=== PATIENT | female | born 1930 | race Caucasian/White ===

== ENCOUNTER 2018-05-22 00:16 | Emergency (ER) | payer MEDICARE ==
[~2018-05-22] VITALS: Ht 162.6 cm; Wt 81.8 kg
[~2018-05-22 00:16] MED LIST: ANTIDEPRESSANT MED PO; CARBIDOPA PO; IRON PO; LASIX PO; LEVODOPA PO; LISINOPRIL PO; SYNTHROID PO; ULTRAM50 MG PO; [UNRECOGNIZED DRUG - OTHER] PO
[2018-05-22 00:19] VITALS: Ht 162.6 cm; Wt 81.8 kg
[2018-05-22] MEDS ORDERED: CITALOPRAM10 MG/5 ML (00:29)
[2018-05-22] MEDS ORDERED: CLARITIN5 MG/5 ML (00:30)
[2018-05-22] MEDS ORDERED: OLUX-E 0.05% FO50 GM (00:30)
[2018-05-22] MEDS ORDERED: FERROUS SULFAT140 MG (00:32)
[2018-05-22] MEDS ORDERED: FUROSEMIDE10 MG/M1 (00:32)
[2018-05-22] MEDS ORDERED: MELATONIN 3 MG1 TAB PO (00:33)
[2018-05-22] MEDS ORDERED: LISINOPRIL5 MG PO (00:33)
[2018-05-22] MEDS ORDERED: PRILOSEC2.5 MG (00:34)
[2018-05-22] MEDS ORDERED: MIRALAX17 GM (00:34)
[2018-05-22] MEDS ORDERED: FLINTSTONE1 TAB.CHEW PO (00:34)
[2018-05-22] MEDS ORDERED: CEFTRIAXONE1 G/VIAL IM (00:34)
[2018-05-22] MEDS ORDERED: SPIRIVA18 MCG INH (00:35)
[2018-05-22] MEDS ORDERED: SYNTHROID75 MCG PO (00:35)
[2018-05-22] MEDS ORDERED: TRIHEXYPHEN2 MG/5 ML (00:36)
[2018-05-22] MEDS ORDERED: XARELTO20 MG PO (00:40)
[2018-05-22] MEDS ORDERED: MUCINEX600 MG PO (00:41)
[2018-05-22] MEDS ORDERED: LASIX40 MG PO (00:41)
[2018-05-22] MEDS ORDERED: SINEMET CR 50-1 EACH (00:42)
[2018-05-22] MEDS ORDERED: MUCINEX600 MG (00:42)
[2018-05-22] MEDS ORDERED: CLEOCIN HCL300 MG (00:44)
[2018-05-22] MEDS ORDERED: CATAPRES0.1 MG (00:45)
[2018-05-22] MEDS ORDERED: COLACE100 MG (00:45)
[2018-05-22] MEDS ORDERED: HYDROXYZINE HCL10 MG (00:45)
[2018-05-22] MEDS ORDERED: IPRAT-ALBUT 0.5-3 ML (00:45)
[2018-05-22 00:54] LABS: BASOPHILS 0.3 % (0-2); EOSINOPHILS 6.7 % (0-7); HEMATOCRIT 33.2 % (36.0-48.0); HEMOGLOBIN 11.1 g/dL (12-16); IMMATURE GRANULOCYTES 1.1 % (0-5); LYMPHOCYTES 16.7 % (15-50); MCH 30.5 pg (26.0-34.0); MCHC 33.4 g/dL (31.0-37.0); MCV 91.2 fL (80.0-100.0); MONOCYTES 12.3 % (2-11); NEUTROPHILS 62.9 % (40-80); PLATELET COUNT 184 10x3/uL (130-400); RBC 3.64 10x6/uL (4.00-5.40); RDW 12.4 % (11.5-14.5)
[2018-05-22 01:09] LABS: ALBUMIN 2.8 g/dL (3.4-5.0); ANION GAP 9.5 mmol/L (8-16); BILIRUBIN - TOTAL 0.37 mg/dL (0.2-1.3); CALCIUM 8.2 mg/dL (8.5-10.1); CREATININE - SERUM 1.5 mg/dL (0.6-1.3); POTASSIUM - SERUM 5.5 mmol/L (3.5-5.1); PROTEIN - SERUM 6.3 g/dL (6.4-8.2)
[2018-05-22 04:52] VITALS: BP 124/52
== END 2018-05-22 04:53 | disposition other institution (70) ==
LOC: D.ER 00:16
PROVIDERS: Family Medicine
DX: L03.114 Cellulitis of left upper limb (principal); I89.0 Lymphedema, not elsewhere classified; G20 Parkinson's disease; I10 Essential (primary) hypertension; R60.0 Localized edema

== ENCOUNTER 2018-10-03 15:05 | Inpatient (IN) | payer MEDICARE, MEDICAID ==
[~2018-10-03] VITALS: Ht 162.6 cm; Wt 75.9 kg
[~2018-10-03 15:05] MED LIST changes: +CATAPRES0.1 MG; +CEFTRIAXONE1 G/VIAL IM; +CITALOPRAM10 MG/5 ML; +CLARITIN5 MG/5 ML; +CLEOCIN HCL300 MG; +COLACE100 MG; +FERROUS SULFAT140 MG; +FLINTSTONE1 TAB.CHEW PO; +FUROSEMIDE10 MG/M1; +HYDROXYZINE HCL10 MG; +IPRAT-ALBUT 0.5-3 ML; +LASIX40 MG PO; +LISINOPRIL5 MG PO; +MELATONIN 3 MG1 TAB PO; +MIRALAX17 GM; +MUCINEX600 MG; +MUCINEX600 MG PO; +OLUX-E 0.05% FO50 GM; +PRILOSEC2.5 MG; +SINEMET CR 50-1 EACH; +SPIRIVA18 MCG INH; +SYNTHROID75 MCG PO; +TRIHEXYPHEN2 MG/5 ML; +XARELTO20 MG PO
[2018-10-03] MEDS ORDERED: ANORO ELLIPTA1 EACH INH (15:35)
[2018-10-03 15:36] LABS: BASOPHILS 0.3 % (0-2); EOSINOPHILS 1.2 % (0-7); HEMATOCRIT 34.7 % (36.0-48.0); HEMOGLOBIN 11.2 g/dL (12-16); IMMATURE GRANULOCYTES 1.8 % (0-5); LYMPHOCYTES 7.7 % (15-50); MCH 30.4 pg (26.0-34.0); MCHC 32.3 g/dL (31.0-37.0); MCV 94.3 fL (80.0-100.0); MEAN PLATELET VOLUME 9.1 fL (7.4-10.4); PLATELET COUNT 256 10x3/uL (130-400); RBC 3.68 10x6/uL (4.00-5.40); RDW 13.5 % (11.5-14.5)
[2018-10-03] MEDS ORDERED: ARTIFICIAL TEAR15 ML EACH EYE (15:36)
[2018-10-03] MEDS ORDERED: ATIVAN0.5 MG PO (15:39)
[2018-10-03] MEDS ORDERED: BACTRIM DS1 TAB PO (15:39)
[2018-10-03] MEDS ORDERED: CELEXA10 MG PO (15:40)
[2018-10-03] MEDS ORDERED: CLARITIN 10 MG10 MG PO (15:40)
[2018-10-03] MEDS ORDERED: OS-CAL500 MG PO (15:40)
[2018-10-03] MEDS ORDERED: COLACE100 MG PO (15:41)
[2018-10-03] MEDS ORDERED: FERROUS SULFAT325 MG PO (15:41)
[2018-10-03] MEDS ORDERED: CLOBETASOL PROP15 GM TP (15:41)
[2018-10-03] MEDS ORDERED: CATAPRES0.1 MG PO (15:41)
[2018-10-03] MEDS ORDERED: FLORANEX / LACT1 TAB PO (15:41)
[2018-10-03 15:42] LABS: ALBUMIN 2.9 g/dL (3.4-5.0); ANION GAP 8.7 mmol/L (8-16); BILIRUBIN - TOTAL 0.46 mg/dL (0.2-1.3); CALCIUM 9.2 mg/dL (8.5-10.1); CREATININE - SERUM 1.7 mg/dL (0.6-1.3); POTASSIUM - SERUM 4.7 mmol/L (3.5-5.1); PROTEIN - SERUM 7.3 g/dL (6.4-8.2)
[2018-10-03] MEDS ORDERED: ANUSOL-HC 2.5%30 GM TOPICAL (15:43)
[2018-10-03] MEDS ORDERED: HYDROXYZINE HCL10 MG PO (15:43)
[2018-10-03] MEDS ORDERED: GERI TUSSIN DM (15:43)
[2018-10-03] MEDS ORDERED: MELATONIN 3 MG1 TAB PO (15:44)
[2018-10-03] MEDS ORDERED: FUROSEMIDE20 MG PO (15:44)
[2018-10-03] MEDS ORDERED: IPRAT-ALBUT 0.5-3 ML UPD (15:44)
[2018-10-03] MEDS ORDERED: OMEPRAZOLE20 M1 PO (15:45)
[2018-10-03] MEDS ORDERED: MULTI-DAY VITAM1 TAB PO (15:45)
[2018-10-03] MEDS ORDERED: MIRALAX17 GM PO (15:45)
[2018-10-03] MEDS ORDERED: KLOR-CON M2020 MEQ PO (15:45)
[2018-10-03] MEDS ORDERED: FLUNISOLIDE29 MCG NASAL (15:46)
[2018-10-03] MEDS ORDERED: THERMOTABS 1 GM1 GM PO (15:46)
[2018-10-03] MEDS ORDERED: SINEMET CR 50-1 EACH PO (15:46)
[2018-10-03] MEDS ORDERED: PROMETHAZINE W473 ML PO (15:46)
[2018-10-03] MEDS ORDERED: TESSALON PERLE100 MG PO (15:47)
[2018-10-03] MEDS ORDERED: SYNTHROID88 MCG PO (15:47)
[2018-10-03] MEDS ORDERED: ARTANE2 MG PO (15:48)
[2018-10-03] MEDS ORDERED: ACETAMINOPHEN500 M1 PO (15:48)
[2018-10-03] MEDS ORDERED: VITAMIN B-12100 MCG PO (15:49)
[2018-10-03] MEDS ORDERED: XARELTO20 MG PO (15:49)
[2018-10-03] MEDS ORDERED: ULTRAM50 MG PO (15:49)
[2018-10-03] MEDS ORDERED: VITAMIN D5000 UNIT PO (15:49)
--- NOTE | 2018-10-03 16:45 | NUR ---
PROVIDED PT WITH ICE WATER AT THIS TIME.
[2018-10-03 16:51] VITALS: BP 180/77
[2018-10-03 16:52] LABS: APPEARANCE CLEAR (CLEAR); BILIRUBIN NEGATIVE (NEGATIVE); COLOR STRAW (YELLOW); GLUCOSE NEGATIVE (NEGATIVE); KETONE NEGATIVE (NEGATIVE); NITRITE POSITIVE (NEGATIVE); PROTEIN TRACE mg/dL (NEGATIVE); SPECIFIC GRAVITY 1.005 (1.005-1.020); UROBILINOGEN NORMAL (NORMAL)
[2018-10-03 16:54] LABS: BACTERIA MODERATE /hpf (NONE SEEN); EPITHELIAL CELLS 0-5 /hpf (0-5); RED CELLS - URINE 0-5 /hpf (0-5)
[2018-10-03 17:11] VITALS: BP 153/72
[2018-10-03 17:17] LABS: THYROID STIMULATING HORMONE 1.91 uIU/mL (0.36-3.74); TROPONIN-I < 0.017 ng/mL (0.000-0.060)
[2018-10-03 17:31] VITALS: BP 127/86
--- NOTE | 2018-10-03 19:21 | NUR ---
PT WAITING ON ROOM 2208 TO CLEAN BEFOR TRANSPORTING PATIENT TO ROOM 2208.
--- NOTE | 2018-10-03 19:55 | NUR ---
PT RESTING ON BED. PT FAMILY AT BEDSIDE. NO S/S OF ACUTE DISTRESS NOTED.
--- NOTE | 2018-10-03 20:06 | NUR ---
PT LEFT ED VIA STRETCHER FOR INPATIENT ROOM.
[2018-10-03 21:02] VITALS: BP 128/71
[2018-10-04 00:36] VITALS: BP 128/71; BMI 28.7
[2018-10-04 00:43] VITALS: BP 133/62
--- NOTE | 2018-10-04 04:09 | NUR ---
RESTING WIT O2 IN PLACE FAMILY AT BEDSIDE.
[2018-10-04 05:00] VITALS: BP 130/62
[2018-10-04 05:41] LABS: BASOPHILS 0.1 % (0-2); EOSINOPHILS 0 % (0-7); HEMATOCRIT 34.3 % (36.0-48.0); LYMPHOCYTES 6.1 % (15-50); MCH 30.1 pg (26.0-34.0); MCHC 32.1 g/dL (31.0-37.0); MCV 93.7 fL (80.0-100.0); MEAN PLATELET VOLUME 9.2 fL (7.4-10.4); MONOCYTES 4.1 % (2-11); NEUTROPHILS 87.7 % (40-80); PLATELET COUNT 266 10x3/uL (130-400); RBC 3.66 10x6/uL (4.00-5.40); RDW 13.3 % (11.5-14.5); WBC 10.3 10x3/uL (4.8-10.8)
[2018-10-04 05:51] LABS: ANION GAP 11.2 mmol/L (8-16); CALCIUM 9.4 mg/dL (8.5-10.1); CREATININE - SERUM 1.7 mg/dL (0.6-1.3); POTASSIUM - SERUM 4.2 mmol/L (3.5-5.1)
[2018-10-04 08:09] VITALS: BP 118/66
--- NOTE | 2018-10-04 11:22 | NUR ---
PT COMPLAINS OF CRAMPING BEHIND BOTH LEGS, PT PAIN MEDICINE DUE IN 1 HOUR, NO MAG RESULTS ON PT, ORDERED DRAW FOR PT. HAS SITTER AT BEDSIDE, CONTINUE WITH PLAN OF CARE
[2018-10-04 12:09] VITALS: BP 106/53
[2018-10-04 12:13] VITALS: Ht 162.6 cm; Wt 75.9 kg
--- NOTE | 2018-10-04 12:14 | NUR ---
RESTING QUIETLY IN BED. DENIES NEEDS. GUPTA PATENT WITH CLEAR YELLOW URINE.
--- NOTE | 2018-10-04 12:33 | NUR ---
PT REQUESTED PAIN MEDICATIONS DUE TO LEG PAIN ADMINISTERED PRN PAIN MEDS AT 1200, SITTER AT BEDSIDE, NO OTHER NEEDS VOICED, CONTINUE WITH PLAN OF CARE
[2018-10-04 20:00] VITALS: BP 118/58
[2018-10-05 06:36] VITALS: BP 108/58
[2018-10-05 07:42] LABS: BASOPHILS 0.4 % (0-2); EOSINOPHILS 1.8 % (0-7); HEMATOCRIT 34.3 % (36.0-48.0); HEMOGLOBIN 10.8 g/dL (12-16); IMMATURE GRANULOCYTES 4.6 % (0-5); LYMPHOCYTES 12.9 % (15-50); MCH 30.2 pg (26.0-34.0); MCHC 31.5 g/dL (31.0-37.0); MEAN PLATELET VOLUME 9.3 fL (7.4-10.4); MONOCYTES 10.5 % (2-11); NEUTROPHILS 69.8 % (40-80); PLATELET COUNT 271 10x3/uL (130-400); RBC 3.58 10x6/uL (4.00-5.40); RDW 13.6 % (11.5-14.5); WBC 10.9 10x3/uL (4.8-10.8)
[2018-10-05 07:51] LABS: MCV 95.8 fL (80.0-100.0)
[2018-10-05 08:02] LABS: CALCIUM 9.2 mg/dL (8.5-10.1); CARBON DIOXIDE 35.3 mmol/L (21.0-32.0); CREATININE - SERUM 2.4 mg/dL (0.6-1.3); POTASSIUM - SERUM 4.3 mmol/L (3.5-5.1)
[2018-10-05 08:24] VITALS: BP 99/45
[2018-10-05 12:49] VITALS: BP 150/114
[2018-10-05 16:08] VITALS: BP 115/50
--- NOTE | 2018-10-05 16:25 | MORECARE ---
CASE MANAGEMENT DISCHARGE SUMMARY PATIENT: SANDRA HERNANDEZ UNIT: [id number] ADM DATE: 10/03/18 AGE: 88 : 32 SEX: F ROOM/BED: D.2208 AUTHOR: ZEB POWELL PHYSICIAN: REFERRING PHYSICIAN: DEBI ALCARAZ MD DATE OF SERVICE: 10/05/18 Discharge Plan Patient Name: SANDRA HERNANDEZ Facility: [facility]:[place] : 1930 Planned Disposition: Nursing Facility [facility] Cert Anticipated Discharge Date: Discharge Date: Expected LOS: Initial Reviewer: [email or web address] Initial Review Date: 10/03/2018 Generated: 10/05/18 5:25 pm Comments DCP- Discharge Planning Updated by [email or web address]: Caitlyn Escobar on 10/05/18 3:[address] Patient Name: SANDRA HERNANDEZ Admission Status: ER Accout number: [id number] Admission Date: 10-03-2018 : 1930 Admission Diagnosis: Attending: DEBI ALCARAZ Current LOS: 2 Anticipated DC Date: Planned Disposition: Nursing Facility [facility] Cert Primary Insurance: MEDICARE A & B Discharge Planning Comments: CM met with patient to assess discharge planning needs. Patient stated that she lives at [facility] where she is a penitentiary resident. She would like to have rehab before she returns. She states that she is too weak to ambulate so she uses a wheelchair. She has home O2 and wheelchair, and nebulizer. Cm will continue to follow and assist with DC planning as needed. Neonatal Nurse: Caitlyn Escobar DCPIA - Discharge Planning Initial Assessment Updated by [email or web address]: Caitlyn Escobar on 10/05/18 4:20 pm * Is the patient Alert and Oriented? Yes * How many steps to enter\exit or inside your home? * PCP [facility] * Preadmission Environment [facility] * Facility Name [facility] * ADLs Partial Dependent * Partial ADLs (Assistance needed) Ambulation Bathing Medication Management Toileting Transfers * Equipment Nebulizer Oxygen Wheelchair * List name and contact numbers for known caregivers / representatives who currently or will assist patient after discharge: MOHINICARMEN DIAZ [phone] * Verbal permission to speak to the caregivers and representatives has been obtained from the patient. Yes * Community resources currently utilized None * Additional services required to return to the preadmission environment? No * Can the patient safely return to the preadmission environment? Yes * Has this patient been hospitalized within the prior 30 days at any hospital? No Patient Name: SANDRA HERNANDEZ Page [phone] at 1625 All edits/amendments must be made on the electronic document DICTATION DATE: 10/05/182 FRUIT PITTER: TAY 10/05/18 1625 RPT#: [id number] DC DATE: STATUS: ADM IN [facility] [address] [place] [address] END OF REPORT
[2018-10-05 20:00] VITALS: BP 93/47
--- NOTE | 2018-10-05 21:30 | NUR ---
PT SITTING UP IN BED, NO SIGNS OF DISTRESS. PT DOES HAVE CONTINUOUS TREMOR. PRODUCTIVE COUGH. O2 8L HFNC. IV LEFT AC SL. SCDS IN PLACE. GUPTA DRAINING CLEAR YELLOW URINE. ALERT AND ORIENTED. BED ALARM ON. PT STATES SHE NEEDS SOMETHING TO HELP HER RELAX. REFUSED ATIVAN STATING IT "MAKES ME CRAZY" PT REQUESTED DILAUDID. GAVE ORDERED. NO OTHER NEEDS OR COMPLAINTS AT THIS TIME. CL IN REACH ,WILL CONT TO MONITOR
[2018-10-06 05:09] LABS: BASOPHILS 0.2 % (0-2); EOSINOPHILS 0.1 % (0-7); HEMATOCRIT 35.5 % (36.0-48.0); HEMOGLOBIN 11.2 g/dL (12-16); IMMATURE GRANULOCYTES 2.9 % (0-5); LYMPHOCYTES 4.2 % (15-50); MCH 29.8 pg (26.0-34.0); MCHC 31.5 g/dL (31.0-37.0); MCV 94.4 fL (80.0-100.0); MEAN PLATELET VOLUME 9.2 fL (7.4-10.4); NEUTROPHILS 91.6 % (40-80); PLATELET COUNT 262 10x3/uL (130-400); RBC 3.76 10x6/uL (4.00-5.40); RDW 13.7 % (11.5-14.5)
[2018-10-06 05:12] LABS: WBC 14.8 10x3/uL (4.8-10.8)
[2018-10-06 05:24] LABS: CALCIUM 8.9 mg/dL (8.5-10.1); CARBON DIOXIDE 33.7 mmol/L (21.0-32.0); CREATININE - SERUM 2.5 mg/dL (0.6-1.3); MAGNESIUM - SERUM 2.2 mg/dL (1.8-2.4); PHOSPHOROUS 4.4 mg/dL (2.5-4.9); POTASSIUM - SERUM 4.7 mmol/L (3.5-5.1)
[2018-10-06 06:14] VITALS: BP 112/68
[2018-10-06 08:12] VITALS: BP 101/57
--- NOTE | 2018-10-06 09:00 | NUR ---
TEAM LEADER/RESEARCH PSYCHOLOGIST COMPLETE. NO SIGNS OF DISTRESS NOTED. DENIES NEEDS AT THIS TIME.
--- NOTE | 2018-10-06 10:49 | NUR ---
NUTRITION F/U PT OUT OF ISOLATION. RENAL ADA DIET WITH NO INTAKE BREAKFAST. WILL CONTINUE TO PROVIDE DIET, MONITOR PO INTAKE. RD FOLLOWING
--- NOTE | 2018-10-06 12:01 | NUR ---
PT IV LOCK BECAME UNDONE AND BLOOD FLOWED THROUGH IV ONTO BED, ASSSITED GETTING PT CLEANED UP, CONTINUE WITH PLAN OF CARE
[2018-10-06 12:58] VITALS: BP 133/117
[2018-10-06 16:08] VITALS: BP 129/58
--- NOTE | 2018-10-06 16:39 | EC ---
PATIENT:SANDRA HERNANDEZ DATE OF SERVICE: 10/03/18 SEX: F MEDICAL RECORD: [id number] DATE OF : [birth year] LOCATION:[facility] [place] AGE OF PATIENT: 88 ADMISSION DATE: 10/03/18 REFERRING PHYSICIAN: INTERPRETING PHYSICIAN: JOCELYN BEACH MD ECHOCARDIOGRAM REPORT ECHO CHARGES 4 ECHO COMPLETE Date: 10/05/18 CLINICAL DIAGNOSIS: CHF ECHOCARDIOGRAPHIC MEASUREMENTS (adult normal given) AC root (d.<3.7cm) 2.7 cm LV Septum d (<1.2 cm> 1.4 cm Valve Excursion 1.2 cm LV Septum (systole) 1.8 cm Left Atria (s.<4.0cm> 4.0 cm LVPW d(<1.2cm) 1.1 cm RV (d.<2.3cm) 3.4 cm LVPW (sytole) 1.2 cm LV diastole(<5.6CM) 4.8 cm MV E-F(>70mm/sec) cm LV systole 3.9 cm LVOT Diameter 1.5 cm MV exc.(>10mm) cm Est.ejection fraction (50-75%) % DOPPLER: LVIT cm/sec A 115 cm/sec E 75 cm/sec LA cm/sec RVSP 54.9 mmHg LVOT 98 cm/sec AOP1/2T m/s Asc. Ao 323 cm/sec RVOT 71 cm/sec RA cm/sec PA 88 cm/sec AV Gradient Peak 41.7 mmHg AV Mean 2.97 mmHg AV Area 0.4 cm MV Gradient Peak 7.3 mmHg MV Mean 4.5 mmHg MV Area cm COMMENTS: Cd Storage And Materials Make Up Helper: David JUNIOR Technical Maintenance Technician: 1 Dr. Beach TAPE# Pericardial Effusion N DATE OF SERVICE: 10/05/2018 FINDINGS: 1. Left ventricular chamber size is within normal limits. Left ventricular systolic function is normal. Overall ejection fraction is estimated at 50%. 2. Left atrium is within normal limits at 3.8 cm. Right atrium and right ventricle chamber sizes are mildly dilated. 3. Valvular structures have normal structure and motion. 4. Doppler interrogation reveals mild tricuspid regurgitation. No other valvular insufficiency or stenosis. Pulmonary systolic pressure is elevated, ECHOCARDIOGRAM REPORT [id number] SANDRA HERNANDEZ estimated at 55 mmHg. 5. No evidence of pericardial effusion or left ventricular thrombus. TRANSINT:[id number] Voice Confirmation ID: [id number] DOCUMENT ID: [id number] JOCELYN BEACH MD at 1639 CC: [id number] DICTATION DATE: 10/05/18 1617 RIM FIRE CHARGER OPERATOR: 10/05/18 1806 ADM IN [facility] [address] [place] [id number]
[2018-10-06 20:00] VITALS: BP 117/46
[2018-10-07] VITALS: BP 96/51
[2018-10-07 03:52] VITALS: BP 106/43
[2018-10-07 04:00] VITALS: BP 106/43
--- NOTE | 2018-10-07 05:00 | NUR ---
PT IN BED IN LOW FOWLERS POSITION. ALERT AND ORIENTED X4. RESPIRATIONS EVEN AND UNLABORED. VS STABLE AND AFEBRILE. NO VISUAL CUES OF DISTRESS NOTED. DENIES ANY OTHER NEEDS AT THIS TIME. BED LOW, SIDE RAILS UP X2. CALL LIGHT IN REACH. WILL CONTINUE TO MONITOR.
[2018-10-07 06:07] LABS: BASOPHILS 0.2 % (0-2); EOSINOPHILS 0.2 % (0-7); HEMATOCRIT 34.8 % (36.0-48.0); HEMOGLOBIN 11.2 g/dL (12-16); IMMATURE GRANULOCYTES 4.7 % (0-5); LYMPHOCYTES 12.4 % (15-50); MCH 30.2 pg (26.0-34.0); MCHC 32.2 g/dL (31.0-37.0); MCV 93.8 fL (80.0-100.0); MEAN PLATELET VOLUME 8.9 fL (7.4-10.4); MONOCYTES 8.9 % (2-11); NEUTROPHILS 73.6 % (40-80); PLATELET COUNT 245 10x3/uL (130-400); RBC 3.71 10x6/uL (4.00-5.40); RDW 13.5 % (11.5-14.5); WBC 14.1 10x3/uL (4.8-10.8)
[2018-10-07 06:22] LABS: ANION GAP 11.2 mmol/L (8-16); CALCIUM 8.7 mg/dL (8.5-10.1); CARBON DIOXIDE 34.7 mmol/L (21.0-32.0); CREATININE - SERUM 2.2 mg/dL (0.6-1.3)
[2018-10-07 06:26] LABS: POTASSIUM - SERUM 3.9 mmol/L (3.5-5.1)
--- NOTE | 2018-10-07 09:03 | MORECARE ---
CASE MANAGEMENT DISCHARGE SUMMARY PATIENT: SANDRA HERNANDEZ UNIT: [id number] ADM DATE: 10/03/18 AGE: 88 : 32 SEX: F ROOM/BED: D.2208 AUTHOR: ZEB POWELL PHYSICIAN: REFERRING PHYSICIAN: DEBI ALCARAZ MD DATE OF SERVICE: 10/07/18 Discharge Plan Patient Name: SANDRA HERNANDEZ Facility: [facility]:[place] : 1930 Planned Disposition: Nursing Facility [facility] Cert Anticipated Discharge Date: Discharge Date: Expected LOS: Initial Reviewer: [email or web address] Initial Review Date: 10/03/2018 Generated: 10/07/18 10:03 am Comments DCP- Discharge Planning Updated by [email or web address]: Caitlyn Escobar on 10/05/18 3:[address] Patient Name: SANDRA HERNANDEZ Admission Status: ER Accout number: [id number] Admission Date: 10-03-2018 : 1930 Admission Diagnosis: Attending: DEBI ALCARAZ Current LOS: 2 Anticipated DC Date: Planned Disposition: Nursing Facility [facility] Cert Primary Insurance: MEDICARE A & B Discharge Planning Comments: CM met with patient to assess discharge planning needs. Patient stated that she lives at [facility] where she is a long-term resident. She would like to have rehab before she returns. She states that she is too weak to ambulate so she uses a wheelchair. She has home O2 and wheelchair, and nebulizer. Cm will continue to follow and assist with DC planning as needed. Bar Manager: Caitlyn Escobar DCPIA - Discharge Planning Initial Assessment Updated by [email or web address]: Caitlyn Escobar on 10/05/18 4:20 pm * Is the patient Alert and Oriented? Yes * How many steps to enter\exit or inside your home? * [facility]CP [facility] * [facility] * Preadmission Environment [facility] Kettle [facility] * Facility Name [facility] * ADLs Partial Dependent * Partial ADLs (Assistance needed) Ambulation Bathing Medication Management Toileting Transfers * Equipment Nebulizer Oxygen Wheelchair * List name and contact numbers for known caregivers / representatives who currently or will assist patient after discharge: MOHINICARMEN BEACHTON [phone] * Verbal permission to speak to the caregivers and representatives has been obtained from the patient. Yes * Community resources currently utilized None * Additional services required to return to the preadmission environment? No * Can the patient safely return to the preadmission environment? Yes * Has this patient been hospitalized within the prior 30 days at any hospital? No External Providers External Provider: [facility] [facility] Next Contact Date: Service Request Date: Service Type: Resolution: Reviewer: Comments: Last DP export: 10/05/18 3:25 p Patient Name: SANDRA HERNANDEZ Page [phone] at 0903 All edits/amendments must be made on the electronic document DICTATION DATE: 10/07/18902 CREDIT INTERN: TAY 10/07/18902 RPT#: [id number] DC DATE: STATUS: ADM IN [facility] [address] [place] [address] END OF REPORT
--- NOTE | 2018-10-07 09:10 | MORECARE ---
CASE MANAGEMENT DISCHARGE SUMMARY PATIENT: SANDRA HERNANDEZ UNIT: [id number] ADM DATE: 10/03/18 AGE: 88 : 32 SEX: F ROOM/BED: D.2208 AUTHOR: ZEB POWELL PHYSICIAN: REFERRING PHYSICIAN: DEBI ALCARAZ MD DATE OF SERVICE: 10/07/18 Discharge Plan Patient Name: SANDRA HERNANDEZ Facility: [facility]:[place] : 1930 Planned Disposition: Nursing Facility [facility] Cert Anticipated Discharge Date: Discharge Date: Expected LOS: Initial Reviewer: [email or web address] Initial Review Date: 10/03/2018 Generated: 10/07/18 10:10 am Comments DCP- Discharge Planning Updated by [email or web address]: Caitlyn Escobar on 10/07/18 8:[address] SPOKE WITH PATIENTS DAUGHTER AND SHE STATED THAT SHE WOULD LIKE TO HAVE [facility] TO COME UP AND EVALUATE HER FOR INPATIENT HOSPICE. ORDER RECEIVED AND CALLED AND SPOKE WITH BARRIE AT [facility]. CM TO CONTINUE TO FOLLOW AND ASSIST NEEDED DCP- Discharge Planning Updated by [email or web address]: Caitlyn Escobar on 10/05/18 3:[address] Patient Name: SANDRA HERNANDEZ Admission Status: ER Accout number: [id number] Admission Date: 10-03-2018 : 1930 Admission Diagnosis: Attending: DEBI ALCARAZ Current LOS: 2 Anticipated DC Date: Planned Disposition: Nursing Facility [facility] Cert Primary Insurance: MEDICARE A & B Discharge Planning Comments: CM met with patient to assess discharge planning needs. Patient stated that she lives at [facility] where she is a detention resident. She would like to have rehab before she returns. She states that she is too weak to ambulate so she uses a wheelchair. She has home O2 and wheelchair, and nebulizer. Cm will continue to follow and assist with DC planning as needed. Sleep Medicine Physician: Caitlyn Escobar DCPIA - Discharge Planning Initial Assessment Updated by [email or web address]: Caitlyn Escobar on 10/05/18 4:20 pm * Is the patient Alert and Oriented? Yes * How many steps to enter\exit or inside your home? * [facility] * [facility] * Preadmission Environment [facility] * Facility Name [facility] * ADLs Partial Dependent * Partial ADLs (Assistance needed) Ambulation Bathing Medication Management Toileting Transfers * Equipment Nebulizer Oxygen Wheelchair * List name and contact numbers for known caregivers / representatives who currently or will assist patient after discharge: MOHINI DIAZ [phone] * Verbal permission to speak to the caregivers and representatives has been obtained from the patient. Yes * Community resources currently utilized None * Additional services required to return to the preadmission environment? No * Can the patient safely return to the preadmission environment? Yes * Has this patient been hospitalized within the prior 30 days at any hospital? No Coverage Notice Reviewer: [id number] Salty Escobar Notice Issued Date-Time: 10/07/2018 9:09 Notice Type: IM Discharge Notice Notice Delivered To: Family Member Relationship to Patient: Daughter Software Validation Engineer Name: MOHINI DIAZ Delivery Method: PHONE - Phone Carole Days: Prior Verbal Notification: Recipient Understood Notice: Yes Recipient Signature: Med Rec Note Co-signed by Attending: Coverage Notice Comment: Last DP export: 10/07/18 8:03 a Patient Name: SANDRA HERNANDEZ Page 54582 at 0910 All edits/amendments must be made on the electronic document DICTATION DATE: 10/07/18909 PICKLE PROCESSOR: TAY 10/07/18909 RPT#: [id number] DC DATE: STATUS: ADM IN [facility] [address] [place] [address] END OF REPORT
--- NOTE | 2018-10-07 11:37 | MORECARE ---
CASE MANAGEMENT DISCHARGE SUMMARY PATIENT: SANDRA HERNANDEZ UNIT: [id number] ADM DATE: 10/03/18 AGE: 88 : 32 SEX: F ROOM/BED: D.2208 AUTHOR: ZEB POWELL PHYSICIAN: REFERRING PHYSICIAN: DEBI ALCARAZ MD DATE OF SERVICE: 10/07/18 Discharge Plan Patient Name: SANDRA HERNANDEZ Facility: [facility]:[place] : 1930 Planned Disposition: Nursing Facility [facility] Cert Anticipated Discharge Date: Discharge Date: Expected LOS: Initial Reviewer: [email or web address] Initial Review Date: 10/03/2018 Generated: 10/07/18 12:37 pm Comments DCP- Discharge Planning Updated by [email or web address]: Caitlyn Escobar on 10/07/18 10:[address] [facility] HERE AND STATED THAT THE PATIENT IS APPROVED FOR [facility] DCP- Discharge Planning Updated by [email or web address]: Caitlyn Escobar on 10/07/18 8:[address] SPOKE WITH PATIENTS DAUGHTER AND SHE STATED THAT SHE WOULD LIKE TO HAVE [facility] TO COME UP AND EVALUATE HER FOR INPATIENT HOSPICE. ORDER RECEIVED AND CALLED AND SPOKE WITH [facility]RI[facility] AT [facility]. CM TO CONTINUE TO FOLLOW AND ASSIST NEEDED DCP- Discharge Planning Updated by [email or web address]: Caitlyn Escobar on 10/05/18 3:[address] Patient Name: SANDRA HERNANDEZ Admission Status: ER Accout number: [id number] Admission Date: 10-03-2018 : 1930 Admission Diagnosis: Attending: DEBI ALCARAZ Current LOS: 2 Anticipated DC Date: Planned Disposition: Nursing Facility [facility] Cert Primary Insurance: MEDICARE A & B Discharge Planning Comments: CM met with patient to assess discharge planning needs. Patient stated that she lives at [facility] where she is a intermediate resident. She would like to have rehab before she returns. She states that she is too weak to ambulate so she uses a wheelchair. She has home O2 and wheelchair, and nebulizer. Cm will continue to follow and assist with DC planning as needed. Passenger Locomotive Engineer: Caitlyn Escobar DCPIA - Discharge Planning Initial Assessment Updated by [email or web address]: Caitlyn Escobar on 10/05/18 4:20 pm * Is the patient Alert and Oriented? Yes * How many steps to enter\exit or inside your home? * [facility]CP [facility] * [facility] * Preadmission Environment [facility] * Facility Name [facility] * ADLs Partial Dependent * Partial ADLs (Assistance needed) Ambulation Bathing Medication Management Toileting Transfers * Equipment Nebulizer Oxygen Wheelchair * List name and contact numbers for known caregivers / representatives who currently or will assist patient after discharge: MOHINI DIAZ [phone] * Verbal permission to speak to the caregivers and representatives has been obtained from the patient. Yes * Community resources currently utilized None * Additional services required to return to the preadmission environment? No * Can the patient safely return to the preadmission environment? Yes * Has this patient been hospitalized within the prior 30 days at any hospital? No Coverage Notice Reviewer: [id number] - Caitlyn Escobar Notice Issued Date-Time: 10/07/2018 9:09 Notice Type: IM Discharge Notice Notice Delivered To: Family Member Relationship to Patient: Daughter Qa Auditor Name: MOHINI DIAZ Delivery Method: PHONE - Phone Carole Days: Prior Verbal Notification: Recipient Understood Notice: Yes Recipient Signature: Med Rec Note Co-signed by Attending: Coverage Notice Comment: Last DP export: 10/07/18 8:10 a Patient Name: SANDRA HERNANDEZ Page [phone] at 1137 All edits/amendments must be made on the electronic document DICTATION DATE: 10/07/181136 GROMMET MACHINE OPERATOR: TAY 10/07/181136 RPT#: [id number] DC DATE: STATUS: ADM IN [facility] [address] [place] [address] END OF REPORT
[2018-10-07 12:42] VITALS: BP 102/38
--- NOTE | 2018-10-11 13:13 | MORECARE ---
CASE MANAGEMENT DISCHARGE SUMMARY PATIENT: SANDRA HERNANDEZ UNIT: [id number] ADM DATE: 10/03/18 AGE: 88 : 32 SEX: F ROOM/BED: D.2208 AUTHOR: ZEB POWELL PHYSICIAN: REFERRING PHYSICIAN: DEBI ALCARAZ MD DATE OF SERVICE: 10/11/18 Discharge Plan Patient Name: SANDRA HERNANDEZ Facility: [facility]:[place] : 1930 Planned Disposition: Nursing Facility [facility] Cert Anticipated Discharge Date: Discharge Date: 10/07/2018 Expected LOS: 0 Initial Reviewer: [email or web address] Initial Review Date: 10/03/2018 Generated: 10/11/18 2:13 pm Comments DCP- Discharge Planning Updated by [email or web address]: Caitlyn Escobar on 10/07/18 10:[address] [facility] HERE AND STATED THAT THE PATIENT IS APPROVED FOR [facility] DCP- Discharge Planning Updated by [email or web address]: Caitlyn Escobar on 10/07/18 8:[address] SPOKE WITH PATIENTS DAUGHTER AND SHE STATED THAT SHE WOULD LIKE TO HAVE [facility] TO COME UP AND EVALUATE HER FOR INPATIENT HOSPICE. ORDER RECEIVED AND CALLED AND SPOKE WITH BARRIE AT [facility]. CM TO CONTINUE TO FOLLOW AND ASSIST NEEDED DCP- Discharge Planning Updated by [email or web address]: Caitlyn Escobar on 10/05/18 3:[address] Patient Name: SANDRA HERNANDEZ Admission Status: ER Accout number: [id number] Admission Date: 10-03-2018 : 1930 Admission Diagnosis: Attending: DEBI ALCARAZ Current LOS: 2 Anticipated DC Date: Planned Disposition: Nursing Facility [facility] Cert Primary Insurance: MEDICARE A & B Discharge Planning Comments: CM met with patient to assess discharge planning needs. Patient stated that she lives at [facility] where she is a [facility] resident. She would like to have rehab before she returns. She states that she is too weak to ambulate so she uses a wheelchair. She has home O2 and wheelchair, and nebulizer. Cm will continue to follow and assist with DC planning as needed. Logistics Research Engineer: Caitlyn Escobar DCPIA - Discharge Planning Initial Assessment Updated by [email or web address]: Caitlyn Escobar on 10/05/18 4:20 pm * Is the patient Alert and Oriented? Yes * How many steps to enter\exit or inside your home? * PCP [facility] * [facility] * Preadmission Environment [facility] * [facility] * ADLs Partial Dependent * Partial ADLs (Assistance needed) Ambulation Bathing Medication Management Toileting Transfers * Equipment Nebulizer Oxygen Wheelchair * List name and contact numbers for known caregivers / representatives who currently or will assist patient after discharge: MOHINI DIAZ [phone] * Verbal permission to speak to the caregivers and representatives has been obtained from the patient. Yes * Community resources currently utilized None * Additional services required to return to the preadmission environment? No * Can the patient safely return to the preadmission environment? Yes * Has this patient been hospitalized within the prior 30 days at any hospital? No Coverage Notice Reviewer: [id number] - Caitlyn Escobar Notice Issued Date-Time: 10/07/2018 9:09 Notice Type: IM Discharge Notice Notice Delivered To: Family Member Relationship to Patient: Daughter Game Designer/Creative Director Name: MOHINI DIAZ Delivery Method: PHONE - Phone Carole Days: Prior Verbal Notification: Recipient Understood Notice: Yes Recipient Signature: Med Rec Note Co-signed by Attending: Coverage Notice Comment: Last DP export: 10/07/18 10:37 a Patient Name: SANDRA HERNANDEZ Page [phone] at 1313 All edits/amendments must be made on the electronic document DICTATION DATE: 10/11/18 1313 APPARATUS LINEMAN: TAY 10/11/18 1313 RPT#: [id number] DC DATE:10/07/18 STATUS: DIS IN [facility] [address] [place] [address] END OF REPORT
== END 2018-10-07 14:18 | disposition hospice, inpatient (51) | DRG 177 ==
LOC: D.ER 15:05 → D.EDHOLD 17:47 → D.MS 17:47
PROVIDERS: Emergency Medicine; ADMIT Internal Medicine Nephrology
DX: J69.0 Pneumonitis due to inhalation of food and vomit (principal); I50.33 Acute on chronic diastolic (congestive) heart failure; J96.01 Acute respiratory failure with hypoxia; N39.0 Urinary tract infection, site not specified; N17.9 Acute kidney failure, unspecified; J15.6 Pneumonia due to other Gram-negative bacteria; J15.212 Pneumonia due to Methicillin resistant Staphylococcus aureus; N18.9 Chronic kidney disease, unspecified

== ENCOUNTER 2018-10-07 15:02 | Inpatient (IN) | payer OTHER ==
[~2018-10-07] VITALS: Ht 162.6 cm; Wt 75.9 kg
[~2018-10-07 15:02] MED LIST changes: +ACETAMINOPHEN500 M1 PO; +ANORO ELLIPTA1 EACH INH; +ANUSOL-HC 2.5%30 GM TOPICAL; +ARTANE2 MG PO; +ARTIFICIAL TEAR15 ML EACH EYE; +ATIVAN0.5 MG PO; +BACTRIM DS1 TAB PO; +CATAPRES0.1 MG PO; +CELEXA10 MG PO; +CLARITIN 10 MG10 MG PO; +CLOBETASOL PROP15 GM TP; +COLACE100 MG PO; +FERROUS SULFAT325 MG PO; +FLORANEX / LACT1 TAB PO; +FLUNISOLIDE29 MCG NASAL; +FUROSEMIDE20 MG PO; +GERI TUSSIN DM; +HYDROXYZINE HCL10 MG PO; +IPRAT-ALBUT 0.5-3 ML UPD; +KLOR-CON M2020 MEQ PO; +MIRALAX17 GM PO; +MULTI-DAY VITAM1 TAB PO; +OMEPRAZOLE20 M1 PO; +OS-CAL500 MG PO; +PROMETHAZINE W473 ML PO; +SINEMET CR 50-1 EACH PO; +SYNTHROID88 MCG PO; +TESSALON PERLE100 MG PO; +THERMOTABS 1 GM1 GM PO; +VITAMIN B-12100 MCG PO; +VITAMIN D5000 UNIT PO
[2018-10-07 16:00] VITALS: BP 112/54
[2018-10-07 16:56] VITALS: BP 112/54; BMI 28.7
[2018-10-07 19:52] VITALS: BP 118/55
[2018-10-08 07:38] VITALS: Ht 162.6 cm; Wt 75.9 kg
[2018-10-08 07:53] VITALS: BP 131/57
--- NOTE | 2018-10-08 09:40 | NUR ---
PT RESTING IN BED AWAKE, NO ACUTE DISTRESS NOTED. O2 @ 10L HI REBA. IV TO LEFT BREAST INTACT WITH NS @ 10ML/HR INFUSING VIA PUMP. SITE WITHOU REDNESS OR EDEMA. F/C PATENT TO GRAVITY AND DRAINING. REPORTS PAIN 9/10 AT THIS TIME. PRESCRIBED PAIN MED TO BE ADMINISTERED. DENIES FURTHER NEEDS AT THIS TIME. CL WITHIN REACH. ENCOURAGED TO CALL WITH NEEDS. WILL CONTINUE TO MONITOR.
[2018-10-08 20:00] VITALS: BP 124/69
--- NOTE | 2018-10-09 06:38 | NUR ---
PT IN BED RESTING QUIETLY WITH EYES CLOSED. VITAL SIGNS STABLE AND AFEBRILE. NO VISUAL CUES OF DISTRESS NOTED. WILL CONTINUE TO MONITOR.
--- NOTE | 2018-10-09 08:00 | NUR ---
PT IS WITHOUT NEEDS AT PRESENT.CALL LIGHT IN REACH
[2018-10-09 08:30] VITALS: BP 101/41
--- NOTE | 2018-10-09 11:26 | NUR ---
PT RESTING IN BED. NO SIGNS OF DISTRESS. IV OT LEFT CHEST PATENT NO REDNESS OR TENDERNESS. RIGHT ARM SWOLLEN. HAS GUPTA NO KINKS PATENT. COMPLAINS OF PAIN PATCH PLACED. DENIES ANY OTHER NEED AT THIS TIME. CALL LIGHT IN REACH. FAMILY AT BEDSIDE.
[2018-10-09 20:00] VITALS: BP 101/35
--- NOTE | 2018-10-10 06:59 | NUR ---
CONCUR WITH WARPING MILL OPERATOR ASSESSMENT.
--- NOTE | 2018-10-10 07:36 | NUR ---
LYING IN BED,WITHOUT NEEDS.CALL LIGHT IN REACH
--- NOTE | 2018-10-10 07:43 | NUR ---
PT RESTING IN BED. NO SIGNS OF DISTRESS. IV TO LEFT BREAST PATENT NO REDNESS OR TENDERNESS. HAS GUPTA PATENT NO KINKS. ON 10L NC HIGH FLOW. DENIES ANY OTHER NEED AT THIS TIME. CALL LIGHT IN REACH. BED LOW POSITION. NO FAMILY AT BEDSIDE AT THIS TIME.
[2018-10-10 08:56] VITALS: BP 110/49
--- NOTE | 2018-10-10 19:45 | NUR ---
RECIEVED REPORT, ASSUMED CARE, REQUESTED PAIN MEDS, CALL LIGHT IN REACH, BED LOWEST POSITION, GUPTA TO GRAVITY, WILL CONTINUE POC
[2018-10-10 20:46] VITALS: BP 128/66
--- NOTE | 2018-10-11 03:33 | NUR ---
PT LYING IN BED RESTING QUIETLY, EYES CLOSED. RESP EVEN, UNLABORED. NO DISTRESS NOTED. CONTINUE ASSISTANT PROFESSOR OF ANTHROPOLOGY'S PLAN OF CARE. HOSPICE PT, COMFORT MEASURES.
--- NOTE | 2018-10-11 08:00 | NUR ---
PATIENT RESTING IN BED WITH DAUGHTER AT SIDE. NO NEEDS VOICED. GUPTA PATENT TO BEDSIDE DRAINAGE. CL IN REACH
[2018-10-11 09:18] VITALS: BP 111/66
[2018-10-11 20:00] VITALS: BP 95/42
--- NOTE | 2018-10-11 20:25 | NUR ---
PT RESTING IN BED. ALERT AND ORIENTED. NO SIGNS OF DISTRESS. BREATHING EVEN AND UNLABORED. PT STATES NO PROBLEMS AT THIS TIME. SKIN CLEAN DRY AND INTACT. IV SITE LT BREAST. DRESSING CLEAN DRY AND ITNACT. NO SIGNS OF INFECTION. GUPTA IN PLACE NO REDDNESS OR SIGNS OF INFECTION PRESENT. RT ARM RESERVE. NO LOWER LEG SWELLING PRESENT. WILL COTNINUE PLAN OF CARE. CALL LIGHT IN REACH. BED LOWERED AND LOCKED.
--- NOTE | 2018-10-12 01:48 | NUR ---
pATIENT IN BED ASLEEP FEET ELAVATED NO S/S OF DISTRESS , RESPRATION EVEN AND UNLABORED CALL LIGHT IN REACH. REMAINS ON FALL PRECATIONS CHECKED OFTEN BY STAFF FOR NEEDS AND SAFETY.
--- NOTE | 2018-10-12 08:00 | NUR ---
HOSPICE PATIENT RESTING IN BED WITH NO DISTRESS. DENIES PAIN AT THIS TIME. RESPIRATIONS NONLABORED, 02 HIGH FLOW CANULA AT 8LPM, GUPTA CATH PATENT WITH CLEAR YELLOW URINE TO BEDSIDE DRAINAGE. IV ABOVE LEFT BREAST PATENT WITH NO REDNESS OR EDEMA. CL IN REACH
[2018-10-12 08:45] VITALS: BP 99/65
[2018-10-12 12:49] VITALS: BP 104/49; BP 105/58
[2018-10-12 20:00] VITALS: BP 125/77
--- NOTE | 2018-10-12 23:54 | NUR ---
SUPINE IN BED, SPONTANEOUS RESPONSE TO VERBAL STIMULATION. A&0 X 4. SCD'S IN USE, NO COMPLAINTS AT THIS TIME, WILL CONTINUE TO MONITOR.
--- NOTE | 2018-10-13 03:35 | NUR ---
CONCUR W/ PHARMACY ACCOUNT DIRECTOR ASSSESSMENT
[2018-10-13 10:04] VITALS: BP 118/48
[2018-10-13 17:34] VITALS: BP 185/52
--- NOTE | 2018-10-13 20:30 | NUR ---
PT SITTING UP IN BED, NO SIGNS OF DISTRESS. ALERT AND ORIENTED. PT STATES PAIN 03/30. GAVE DILAUDID ORDERED. PROVIDED PT W/ THICKENED CRANBERRY JUICE REQUESTED. NO OTHER NEEDS OR COMPLAINTS AT THIS TIME. CL IN REACH, MISHA ON. WILL CONTINUE TO MONITOR
[2018-10-13 20:54] VITALS: BP 99/60
[2018-10-14 00:59] VITALS: BP 97/59
--- NOTE | 2018-10-14 07:30 | NUR ---
REC'D IN BED AWAKE AND ALERT. RESP EVEN AND UNLABORED WITH NO DISTRESS NOTED. CAN EXPRESS NEEDS AND WANTS. NO C/O NOTE OR VOICED. ASSESSMENT COMPLETED. C/L IN REACH AT BEDSIDE.
--- NOTE | 2018-10-14 08:21 | NUR ---
PT WAS MEDICATED WITH DILUADID 1 MG PER ORDERS FOR CO PAIN RATING 8/10 ON PAIN SCALE. C/L IN REACH AT BEDSIDE.
--- NOTE | 2018-10-14 09:37 | NUR ---
infection control preventionist note-resting quietly with eyes closed and resp even and unlabored. oxygen in use. right arm less swollen. no family at bedside at present. remains in hospice. call light in reach
[2018-10-14 15:58] VITALS: BP 114/45
[2018-10-14 18:35] VITALS: BP 117/60
--- NOTE | 2018-10-15 08:26 | NUR ---
AAOX4. PT RESTING IN BED. DAUGHTER AT BEDSIDE. PT ON 6 L HIGH FLOW. FAMILY REQUESTING RESP TRY TO WEAN PT OFF OF HIGH FLOW TO REG O2. NO S/S OF ACUTE DISTRESS. CL IN PLACE.
[2018-10-15 08:37] VITALS: BP 121/43
--- NOTE | 2018-10-15 09:18 | NUR ---
CHANGED PT TO REGULAR NASAL CANNULA INSTEAD OF THE HIGH FLOW CANNULA, PT SATURATION ON 3L OF O2 IS 95-96%, WILL CONTINUE TO MONITOR PT SATURATIONS.
--- NOTE | 2018-10-15 09:36 | MORECARE ---
CASE MANAGEMENT DISCHARGE SUMMARY PATIENT: SANDRA HERNANDEZ UNIT: [id number] ADM DATE: 10/07/18 AGE: 88 : 32 SEX: F ROOM/BED: D.2208 AUTHOR: ZEB POWELL PHYSICIAN: REFERRING PHYSICIAN: CLARIBEL STARK MD DATE OF SERVICE: 10/15/18 Discharge Plan Patient Name: SANDRA HERNANDEZ Facility: [facility]:[place] : 1930 Planned Disposition: Anticipated Discharge Date: Discharge Date: Expected LOS: Initial Reviewer: [email or web address] Initial Review Date: 10/07/2018 Generated: 10/15/18 10:36 am Comments DCP- Discharge Planning Updated by [email or web address]: Caitlyn Escobar on 10/15/18 8:[address] RECEIVED A CALL FROM [facility] STATING THAT THEY WOULD LIKE THE PATIENT TO MAINTAIN HER O2 SATS ON A REGUALR NC OVER THE WEEKEND BEFORE THEY WILL TAKE HER BACK. CM WILL CONTINUE TO FOLLOW AND ASSIST WIT DC PLANNING External Providers External Provider: [facility] Next Contact Date: Service Request Date: Service Type: Resolution: Reviewer: Comments: Patient Name: SANDRA HERNANDEZ Page [phone] at 0936 All edits/amendments must be made on the electronic document DICTATION DATE: 10/15/18935 RETAIL AREA MANAGER: TAY 10/15/18 0936 RPT#: [id number] DC DATE: STATUS: ADM IN [facility] [address] [place] [address] END OF REPORT
--- NOTE | 2018-10-15 18:18 | NUR ---
PT RESTING IN BED. HOB ELEVATED 45 DEGREES. 3 LITERS O2 NC. [place]. NO S/S OF ACUTE DISTRESS. CL IN PLACE.
--- NOTE | 2018-10-15 19:00 | NUR ---
PT ALERT AND ORIENTED WHEN ENTERING THE ROOM. PT HAS GENERALIZED EDEMA. SCD'S ARE ON. PT STATED THAT SHE HAD MESSED THE BED. PT HAD LOOSE BOWEL MOVEMENT. CLEANED PT AND REPOSITIONED IN BED. PT REQUESTS HS MEDICATIONS AND PAIN MEDICINE SOON AVAILABLE. NO IV ACCESS. PT HAS BLISTER ON RIGHT BUTT CHEEK. APPLIED BOUDREAUXS TO BOTTOM. CALL LIGHT IN REACH.
[2018-10-15 20:00] VITALS: BP 119/55
--- NOTE | 2018-10-16 05:59 | NUR ---
I CONCUR WITH SHELLFISH BED WORKER ASSESSMENT.
[2018-10-16 08:05] VITALS: BP 124/42
--- NOTE | 2018-10-16 08:17 | NUR ---
PT ALERT X 4. BREATH SOUNDS CLEAR BILAT, 2L O2 PER NC. NO IV ACCESS AT THIS TIME. GUPTA IN PLACE, URINE YELLOW AND CLEAR. PT REPORTING PAIN OF 7/10, WANTING PAIN MEDICATION AFTER BREAKFAST. BED LOW, CALL LIGHT IN REACH, NO OTHER NEEDS AT THIS TIME.
[2018-10-16 16:45] VITALS: BP 106/56
--- NOTE | 2018-10-16 19:15 | NUR ---
RECEIVED CARE FROM DAY NURSE. REPORTS NO NEEDS AT THIS TIME. CALL LIGHT AT SIDE. NO IV. TRAVEL PILLOW IN USE. LEGS ELEVATED ON PILLOW. GUPTA TO GRAVITY.
[2018-10-16 20:41] VITALS: BP 102/49
[2018-10-17 00:40] VITALS: BP 133/53
--- NOTE | 2018-10-17 04:16 | NUR ---
RESTING QUITLY WITH EYES CLOSED. NO DISTRESS NOTED.
--- NOTE | 2018-10-17 04:33 | NUR ---
I AGREE WITH THE BALL POINT SPLITTER ASSESSMENT.
--- NOTE | 2018-10-17 08:02 | NUR ---
PT ALERT X 4. BREATH SOUNDS DIMINISHED TO LLL, 2L O2 PER NC. NO IV ACCESS AT THIS TIME. BRUISING TO LEFT ARM. +2 EDEMA TO RIGHT ARM. PAIN OF 7/10, PT STATES THIS IS HER NORMAL, WILL MONITOR. BED LOW, CALL LIGHT IN REACH. NO OTHER NEEDS AT THIS TIME.
[2018-10-17 08:46] VITALS: BP 110/54
--- NOTE | 2018-10-17 17:41 | MORECARE ---
CASE MANAGEMENT DISCHARGE SUMMARY PATIENT: SANDRA HERNANDEZ UNIT: [id number] ADM DATE: 10/07/18 AGE: 88 : 32 SEX: F ROOM/BED: D.2208 AUTHOR: ZEB POWELL PHYSICIAN: REFERRING PHYSICIAN: CLARIBEL STARK MD DATE OF SERVICE: 10/17/18 Discharge Plan Patient Name: SANDRA HERNANDEZ Facility: [facility]:[place] : 1930 Planned Disposition: Anticipated Discharge Date: Discharge Date: Expected LOS: Initial Reviewer: [email or web address] Initial Review Date: 10/07/2018 Generated: 10/17/18 6:41 pm Comments DCP- Discharge Planning Updated by [email or web address]: Chela Tripathi on 10/17/18 4:[address] LATE ENTRY 1030 DR AMBROSE AND CASI AZAR SPOKE WITH TUBE COVERER REGARDING DISCHARGING THE PATIENT BACK TO [facility] TODAY. TC TO FACILITY AND SPOKE WITH PRATIMA. SHE ADVISED CM THE CONTENT PRODUCTION SPECIALIST HAD LEFT INSTRUCTIONS THAT THE PATIENT COULD NOT RETURN OVER THE WEEKEND. SHE MAY BE ADMITTED BACK ON THURSDAY. [facility] [phone]. WEEKDAY CM TO FOLLOW UP THURSDAY AM. DCP- Discharge Planning Updated by [email or web address]: Caitlyn Escobar on 10/15/18 8:[address] RECEIVED A CALL FROM [facility] STATING THAT THEY WOULD LIKE THE PATIENT TO MAINTAIN HER O2 SATS ON A REGUALR NC OVER THE WEEKEND BEFORE THEY WILL TAKE HER BACK. CM WILL CONTINUE TO FOLLOW AND ASSIST WIT DC PLANNING Last DP export: 10/15/18 8:36 a Patient Name: SANDRA HERNANDEZ Page [phone] at 1741 All edits/amendments must be made on the electronic document DICTATION DATE: 10/17/181740 MICROCOMPUTER TECHNICIAN: TAY 10/17/181740 RPT#: [id number] DC DATE: STATUS: ADM IN [facility] [address] [place] [address] END OF REPORT
--- NOTE | 2018-10-17 19:15 | NUR ---
RECEIVED CARE FROM DAY NURSE. LYING IN BED WITH EYES CLOSED. RESP EVEN AND UNALBORED. CALL LIGT AT SIDE. NO IV. GUPTA TO GRAVITY. TRAVEL PILLOW IN USE.
[2018-10-17 20:00] VITALS: BP 94/75
--- NOTE | 2018-10-18 06:03 | NUR ---
I AGREE WITH THE POLYMERIZATION OVEN TENDER ASSESSMENT OF THIS PATIENT.
[2018-10-18] MEDS ORDERED: Bumex PO (08:01)
--- NOTE | 2018-10-18 08:52 | NUR ---
AWAKE AND ALERT. ORIENTED X3. NO C/O AT THIS TIME. LUNGS ARE CLEAR BILATERALLY, OCCASSIONAL DRY COUGH NOTED. SKIN IS INTACT WITHOUT REDNESS. SITTING UP IN BED EATING BREAKFAST. DENIES NEEDS. GUPTA PATENT WITH CLEAR YELLOW URINE.
[2018-10-18 08:53] VITALS: BP 117/49
[2018-10-18] MEDS ORDERED: FENTANYL TRANSDERM (09:27)
--- NOTE | 2018-10-18 09:59 | MORECARE ---
CASE MANAGEMENT DISCHARGE SUMMARY PATIENT: SANDRA HERNANDEZ UNIT: [id number] ADM DATE: 10/07/18 AGE: 88 : 32 SEX: F ROOM/BED: D.2208 AUTHOR: ZEB POWELL PHYSICIAN: REFERRING PHYSICIAN: CLARIBEL STARK MD DATE OF SERVICE: 10/18/18 Discharge Plan Patient Name: SANDRA HERNANDEZ Facility: [facility]:[place] : 1930 Planned Disposition: Anticipated Discharge Date: Discharge Date: Expected LOS: Initial Reviewer: [email or web address] Initial Review Date: 10/07/2018 Generated: 10/18/18 10:59 am Comments DCP- Discharge Planning Updated by [email or web address]: Caitlyn Escobar on 10/18/18 8:[address] PATIENT WILL BE DISCHARGING BACK TO [facility] TODAY VIA EMS TO HER [facility] BED. SPOKE WITH SABRINA ([facility]) AND OLGA PATIENT'S NURSE. I ALSO SPOKE WITH PATIENT'S DAUGHTER MOHINI. CM WILL CONTINUE TO FOLLOW AND ASSIST WITH DC PLANNING NEEDED DCP- Discharge Planning Updated by [email or web address]: Chela Tripathi on 10/17/18 4:[address] LATE ENTRY 1030 DR AMBROSE AND CASI AZAR SPOKE WITH PACKAGE CRIMPER REGARDING DISCHARGING THE PATIENT BACK TO [facility] TODAY. TC TO FACILITY AND SPOKE WITH PRATIMA. SHE ADVISED CM THE GLOBAL LOGISTICS ANALYST HAD LEFT INSTRUCTIONS THAT THE PATIENT COULD NOT RETURN OVER THE WEEKEND. SHE MAY BE ADMITTED BACK ON THURSDAY. [facility] [phone]. WEEKDAY CM TO FOLLOW UP THURSDAY AM. DCP- Discharge Planning Updated by [email or web address]: Caitlyn Escobar on 10/15/18 8:[address] RECEIVED A CALL FROM [facility] STATING THAT THEY WOULD LIKE THE PATIENT TO MAINTAIN HER O2 SATS ON A REGUALR NC OVER THE WEEKEND BEFORE THEY WILL TAKE HER BACK. CM WILL CONTINUE TO FOLLOW AND ASSIST WIT DC PLANNING Last DP export: 10/17/18 4:41 p Patient Name: SANDRA HERNANDEZ Page [phone] at 0959 All edits/amendments must be made on the electronic document DICTATION DATE: 10/18/18957 SENIOR COUNSEL COMMERCIAL: TAY 10/18/18957 RPT#: [id number] DC DATE: STATUS: ADM IN [facility] [address] [place] [address] END OF REPORT
--- NOTE | 2018-10-18 10:45 | NUR ---
REPORT CALLED TO JAY HAMPTON RN AT [facility]. ALL QUESTIONS ANSWERED.
--- NOTE | 2018-10-18 11:30 | NUR ---
DISCHARGED TO [facility] VIA AMBULANCE. DISCHARGE INSTRUCTIONS GIVEN BOTH VERBALLY AND WRITTEN. ALL QUESTIONS ANSWERED. GUPTA D/C WITH TIP INTACT WITHOUT DIFFICULTY. INCONTINENT OF STOOL. SKIN CARE PER STAFF. PLACED IN BRIEF AT THIS TIME. DENIES NEEDS.
--- NOTE | 2018-10-19 12:23 | MORECARE ---
CASE MANAGEMENT DISCHARGE SUMMARY PATIENT: SANDRA HERNANDEZ UNIT: [id number] ADM DATE: 10/07/18 AGE: 88 : 32 SEX: F ROOM/BED: D.2208 AUTHOR: ZEB POWELL PHYSICIAN: REFERRING PHYSICIAN: CLARIBEL STARK MD DATE OF SERVICE: 10/19/18 Discharge Plan Patient Name: SANDRA HERNANDEZ Facility: [facility]:[place] : 1930 Planned Disposition: Anticipated Discharge Date: Discharge Date: 10/18/2018 Expected LOS: Initial Reviewer: [email or web address] Initial Review Date: 10/07/2018 Generated: 10/19/18 1:23 pm Comments DCP- Discharge Planning Updated by [email or web address]: Caitlyn Escobar on 10/18/18 8:[address] PATIENT WILL BE DISCHARGING BACK TO [facility] TODAY VIA EMS TO HER SN[facility] BED. SPOKE WITH SABRINA ([facility]) AND OLGA PATIENT'S NURSE. I ALSO SPOKE WITH PATIENT'S DAUGHTER MOHINI. CM WILL CONTINUE TO FOLLOW AND ASSIST WITH DC PLANNING NEEDED DCP- Discharge Planning Updated by [email or web address]: Chela Tripathi on 10/17/18 4:[address] LATE ENTRY 1030 DR AMBROSE AND CASI AZAR SPOKE WITH SUPERVISOR FURNACE ROOM REGARDING DISCHARGING THE PATIENT BACK TO [facility] TODAY. TC TO FACILITY AND SPOKE WITH PRATIMA. SHE ADVISED CM THE MANAGER LOCATION HAD LEFT INSTRUCTIONS THAT THE PATIENT COULD NOT RETURN OVER THE WEEKEND. SHE MAY BE ADMITTED BACK ON THURSDAY. [facility] [phone]. WEEKDAY CM TO FOLLOW UP THURSDAY AM. DCP- Discharge Planning Updated by [email or web address]: Caitlyn Escobar on 10/15/18 8:[address] RECEIVED A CALL FROM [facility] STATING THAT THEY WOULD LIKE THE PATIENT TO MAINTAIN HER O2 SATS ON A REGUALR NC OVER THE WEEKEND BEFORE THEY WILL TAKE HER BACK. CM WILL CONTINUE TO FOLLOW AND ASSIST WIT DC PLANNING Last DP export: 10/18/18 8:59 a Patient Name: SANDRA HERNANDEZ Page [phone] at 1223 All edits/amendments must be made on the electronic document DICTATION DATE: 10/19/18 1223 FREIGHT CAR REPAIRER: TAY 10/19/18 1223 RPT#: [id number] DC DATE:10/18/18 STATUS: DIS IN [facility] [address] [place] [address] END OF REPORT
== END 2018-10-18 11:30 | DRG 951 ==
LOC: D.MS 15:02
PROVIDERS: ADMIT Legal Medicine
DX: Z51.5 Encounter for palliative care (principal)

== ENCOUNTER 2019-03-07 10:21 | Emergency (ER) | payer MEDICARE, MEDICAID ==
[~2019-03-07] VITALS: Ht 162.6 cm; Wt 63.6 kg
[~2019-03-07 10:21] MED LIST changes: +Bumex PO; +FENTANYL TRANSDERM
[2019-03-07 10:24] VITALS: Ht 162.6 cm; Wt 63.6 kg
[2019-03-07 12:15] VITALS: BP 85/59
== END 2019-03-07 12:40 | disposition other institution (70) ==
LOC: D.ER 10:21
DX: F03.90 Unspecified dementia, unspecified severity, without behavioral disturbance, psychotic disturbance, mood disturbance, and anxiety (principal); S00.83XA Contusion of other part of head, initial encounter; W05.0XXA Fall from non-moving wheelchair, initial encounter; Y93.89 Activity, other specified; Y92.129 Unspecified place in nursing home as the place of occurrence of the external cause; Z79.01 Long term (current) use of anticoagulants